=== PATIENT | female | born 1955 | race Caucasian/White ===

== ENCOUNTER 2019-02-04 06:17 | Day surgery (SDC) | payer OTHER ==
[2019-02-03 16:56] VITALS: BMI 28.1
--- NOTE | 2019-02-03 21:55 | HP ---
Satellite H - Chief Complaint Chief Complaint: right shoulder pain - Past Medical History Allergies/Adverse Reactions: Allergies Allergy/AdvReac Type Severity Reaction Status Date / Time No Known Drug Allergies Allergy Verified 02/03/19 16:58 - Current Medications Current Medications: Home Medications Medication Instructions Recorded Hydrocodone/Acetaminophen 1 each PO Q6H #30 tablet MDD 4 02/04/19 [Hydrocodone-Acetamin 5-325 mg] Satellite Physical Exam - Physical Examination General Appearance: Well Nourished, Well Developed, Alert & Oriented x3 ENT: Clear Lung: Normal air movement Extremities: Other (right shoulder- + ttp ,dec rom, + empty can, nvi, MRI + rct) Neurological: Intact, Alert, Oriented Satellite Impression/Plan - Impression/Plan Impression: right shoulder rct Operative Procedure: right shoulder arthroscopy with rcr sad Date to be Performed: 02/04/19
[2019-02-04] MEDS ORDERED: SODIUM CHLORIDE 0.9% P/F 10 ML VIAL IJ ONE (07:17)
[2019-02-04] MEDS ORDERED: ceFAZolin SODIUM 1 GM VIAL ONE (07:17)
[2019-02-04] MEDS ORDERED: MIDAZOLAM HCL 2 MG/2 ML SINGLE DOSE VIAL ONE ×4 (07:18→07:38)
[2019-02-04] MEDS ORDERED: PROPOFOL 20 ML ONE ×3 (07:18)
[2019-02-04] MEDS ORDERED: EPHEDRINE SULFATE/0.9% NACL/PF 50 MG/10 ML SYRINGE NR ONE (07:23)
[2019-02-04] MEDS ORDERED: ROPIVACAINE HCL 0.5% 30ML VIAL ONE (07:37)
[2019-02-04] MEDS ORDERED: ONDANSETRON 4 MG/2 ML VIAL IVPUSH PRN (08:02)
[2019-02-04] MEDS ORDERED: oxyCODONE HCL 5 MG TABLET PO PRN ×2 (08:02)
[2019-02-04] MEDS ORDERED: ACETAMINOPHEN 1000 MG/100 ML VIAL (NON FORMULARY) IVPB ONE (08:02)
[2019-02-04] MEDS ORDERED: LACTATED RINGERS SOLUTION 1,000 ML IV SCH (08:15)
[2019-02-04] MEDS ORDERED: ceFAZolin SODIUM 1 GM VIAL IVPB ONE (08:29)
--- NOTE | 2019-02-04 09:47 | OP ---
Operative Note - Note: Operative Date: 02/04/19 ([facility]) Pre-Operative Diagnosis: right shoulder rct Operation: right shoulder arthroscopy with RCR, SAD Post-Operative Diagnosis: Same as Pre-op Surgeon: Nino Nathan Ic Design Engineer: Selvin Strickland Anesthesia: General, Local Specimens Removed: shavings Estimated Blood Loss (mls): 5
--- NOTE | 2019-02-04 11:58 | OP ---
DATE OF OPERATION: 02/04/2019 PREOPERATIVE DIAGNOSES: Right shoulder impingement syndrome, acromioclavicular joint arthritis and rotator cuff tear. POSTOPERATIVE DIAGNOSES: Right shoulder impingement syndrome, acromioclavicular joint arthritis and rotator cuff tear. PROCEDURE: Right shoulder arthroscopy, subacromial decompression, distal clavicle excision and arthroscopic rotator cuff repair. SURGEON: Lucita Watson MD BOW REHAIRER: JOEL Prado ANESTHESIOLOGIST: Telma Fraser MD ANESTHESIA: Right interscalene block with LMA anesthesia. DRAINS: None. COMPLICATIONS: None. BLOOD LOSS: Minimal. BLOOD GIVEN: None. FLUID REPLACEMENT: Plasma-Lyte 1000 mL. SPECIMEN: Arthroscopic shavings. INDICATIONS: This patient is a 63-year-old female with a preoperative diagnosis of right shoulder pain, impingement syndrome, AC joint arthritis and a rotator cuff tear. After understanding the potential risks, complications, alternatives and benefits of surgery versus nonsurgical treatment patient elected to undergo this procedure. DESCRIPTION OF PROCEDURE: The patient was brought to the operating room, peripheral IV placed and IV sedation given. Ancef 2 g IV was given. A right interscalene block was performed. LMA anesthesia was induced. She was placed into the beach-chair position with ample padding throughout. The right upper extremity was prepped and draped in sterile fashion. The bony landmarks were marked out with a marking pen. A posterior portal was established, an arthroscope introduced into the glenohumeral joint and a diagnostic glenohumeral arthroscopy was performed. Patient had a clear full-thickness rotator cuff tear. It was crescent shaped, involving the entirety of the supraspinatus. It was not particularly retracted. I could see the undersurface of the acromion from the glenohumeral side. The rest of the intraarticular structures looked good. There was no arthritis of the glenoid or the humerus. The labrum looked good. Next our attention turned to the subacromial space. A lateral portal was established under direct visualization using a spinal needle and a green cannula was introduced into the subacromial space. The patient had a tremendous amount of inflammatory bursitis. This was removed with the ArthroCare wand. This revealed a large subacromial and a large sub distal clavicular spur. Both of these bony spurs were taken down with the 5.5-mm oval bur and then fine tuned in reverse and with the straight shaver. All debris was removed with the shaver as well. This revealed a crescent-shaped full-thickness supraspinatus rotator cuff tear from the top. The edges were debrided, cauterized. The landing bed on the humerus was decorticated, then shaved with the bur and the shaver. The lateral bursectomy under the deltoid was completed. Because we had good exposure and the rotator cuff was very mobile we put in 6 FiberWires, put the anterior 3 FiberWires/6 tails through an anterior Arthrex SwiveLock anchor and then we did the posterior 3/6 tails in another Arthrex SwiveLock anchor. With the 2 anchors and a total of 6 FiberWires we were able to bring the rotator cuff down quite well to the humeral head. It moved as a unit. Photographs were taken before, during and after. The area was copiously irrigated and washed out. All instrumentation, excess saline and debris were removed. The arthroscopy portals were closed with 3-0 nylon suture. Two 4-inch Aquacel dressings were placed on the incisions. The patient's right shoulder was placed into a shoulder immobilizer, was extubated. Total operative time was about 55 minutes. There were no complications during the case. The patient tolerated the procedure well and was brought to the ambulatory recovery room in stable condition. LUCITA WATSON M.D. [id number]
[2019-02-04 17:09] VITALS: TEMP 97.4
[2019-02-04 17:23] VITALS: BP 122/63; PULSE 78
--- NOTE | 2019-02-05 13:06 | PATH ---
Surgical Pathology Report Patient Name: JORGE A MEDEIROS [facility]. Rec. #: [id number] /Age/Gender: 1955 (Age: 63) / F Account: [id number] Location: [facility] SURGICAL Taken: 02/04/2019 Received: 02/04/2019 Reported: 02/05/2019 Physicians: Nino Nathan M.D. Specimen(s) Received SHOULDER SHAVINGS, RIGHT Clinical History Right shoulder tear Final Diagnosis SHOULDER SHAVINGS, RIGHT, ARTHROSCOPY, SUBACROMIAL DECOMPRESSION, ROTATOR CUFF REPAIR: FRAGMENTS OF BENIGN CARTILAGE, BONE, DENSE FIBROCONNECTIVE TISSUE, ADIPOSE TISSUE, SYNOVIUM, AND SKELETAL MUSCLE. Electronically Signed Ashley Huerta M.D. Gross Description Received in formalin, labeled "right shoulder shavings," is a 4.5 x 4.5 x 0.4 cm. aggregate of orozco-yellow soft tissue fragments. A sales representative consultant portion is submitted in one cassette. /02/04/[address] [facility]02/04/2019
== END 2019-02-04 12:50 | disposition home or self-care (01) ==
LOC: JASU-SURG 06:17
PROVIDERS: ATTEND Orthopaedic Surgery
PROC: 0PB94ZZ Excision of Right Clavicle, Percutaneous Endoscopic Approach (ICD-10-PCS; 2019-02-04)
PROC: 0RNJ4ZZ Release Right Shoulder Joint, Percutaneous Endoscopic Approach (ICD-10-PCS; principal; 2019-02-04 08:00)
PROC: 0LQ14ZZ Repair Right Shoulder Tendon, Percutaneous Endoscopic Approach (ICD-10-PCS; 2019-02-04 08:00)
DX: M75.41 Impingement syndrome of right shoulder (principal); M19.011 Primary osteoarthritis, right shoulder; M75.101 Unspecified rotator cuff tear or rupture of right shoulder, not specified as traumatic
CPT/HCPCS: 94760